=== PATIENT | female | born 1970 | race Caucasian/White ===

== ENCOUNTER 2017-08-11 17:37 | Emergency (ER) | payer BC ==
--- NOTE | 2017-08-11 18:14 | RAD ---
INDICATION: Right ankle injury. TECHNIQUE: 3 views of the right ankle were obtained. FINDINGS: There is soft tissue swelling present along the anterolateral aspect of the ankle. There is an oblique intra-articular fracture of the distal fibula. There is slight displacement of the distal fragment approximately 1 cortical diameter lateral relative to the proximal fragment. There is suggestion of mild widening of the lateral mortise. No other fractures are seen. IMPRESSION: OBLIQUE SLIGHTLY DISPLACED INTRA-ARTICULAR FRACTURE OF THE DISTAL FIBULA. THERE APPEARS TO BE MILD WIDENING OF THE ANKLE MORTISE.
[2017-08-11 18:22] VITALS: BP 141/92
--- NOTE | 2017-08-11 20:47 | UC ---
Leander Forrest Stephanie, scribed for Anderson Leyva MD on 08/11/17 at 1936 . Lower Extremity/Ankle HPI - HPI Summary HPI Summary: The pt is a 47 y/o M presenting to with c/o R ankle pain that occured today at 16:00 s/p fall on ice. The pt reports she heard a snap. The pt states she has not been able to walk s/p fall. - History of Current Complaint Chief Complaint: UCLowerExtremity Stated Complaint: ANKLE INJURY Time Seen by Provider: 08/11/17 18:42 Hx Obtained From: Patient Hx Last Menstrual Period: 2 weeks Onset/Duration: Lasting Hours, Still Present Severity Currently: Moderate Pain Intensity: 6 Pain Scale Used: 0-10 Numeric Aggravating Factor(s): Ambulation Alleviating Factor(s): Rest Able to Bear Weight: No - Allergies/Home Medications Allergies/Adverse Reactions: Allergies Allergy/AdvReac Type Severity Reaction Status Date / Time No Known Allergies Allergy Verified 08/11/17 18:22 PMH/Surg Hx/FS Hx/Imm Hx Previously Healthy: Yes - The pt denies past medical hx. - Surgical History Surgical History: None - Family History Known Family History: Positive: Unknown - Reviewed and non-contributory - Social History Occupation: Employed Part-time Lives: With Family Alcohol Use: None Substance Use Type: None Smoking Status (MU): Never Smoked Tobacco Review of Systems Constitutional: Negative Skin: Negative Eyes: Negative ENT: Negative Respiratory: Negative Cardiovascular: Negative Gastrointestinal: Negative Genitourinary: Negative Motor: Negative Neurovascular: Negative Musculoskeletal: Other: - pain in R LE Neurological: Negative Psychological: Negative All Other Systems Reviewed And Are Negative: Yes Physical Exam Triage Information Reviewed: Yes Vital Signs: Initial Vital Signs Temp 98.8 F 08/11/17 18:19 Pulse 92 08/11/17 18:19 Resp 16 08/11/17 18:19 BP 141/92 08/11/17 18:19 Pulse Ox 98 08/11/17 18:19 Vital Signs Reviewed: Yes - Additional Comments General: well-appearing, no pain distress Skin: warm, color reflects adequate perfusion, dry Head: normal Eyes: EOMI, CHARISSE ENT: normal Neck: supple, nontender Respiratory: CTA, breath sounds present Cardiovascular: RRR Abdomen: soft, nontender Bowel: present Musculoskeletal: R ankle edematous and tender to palpation, R lateral ankle tender to palpation. Nml cap refill Neurological: normal, sensory/motor intact, A&O x3 Psychological: affect/mood appropriate Procedures - Splinting Location: RIGHT ANKLE Hand-Made Type: orthoglass Splint: SUGAR TONG AND POSTERIOR SPLINS PLACED BY OK PHILLIPS Pre-Proc Neuro Vasc Exam: normal Post-Proc Neuro Vasc Exam: normal Diagnostics - Radiology Ankle XRAY Xray Interpretation: No Acute Changes Radiology Interpretation Completed By: Radiologist - OBLIQUE SLIGHTLY DISPLACED INTRA-ARTICULAR FRACTURE OF THE DISTAL FIBULA. THERE APPEARS TO BE MILD WIDENING OF THE ANKLE MORTISE. Lower Extremity Course/Dx - Course Course Of Treatment: Medications reviewed. BP noted and advised to follow up with PCP. - Differential Dx/Diagnosis Provider Diagnoses: RIGHT ANKLE FRACTURE. elevated BP without dx of HTN Discharge - Discharge Plan Condition: Stable Disposition: HOME Patient Education Materials: Ankle Fracture (ED) Referrals: [facility] [Outside] - As Soon As Possible Mariah Fierro MD [Primary Care Provider] - Additional Instructions: FOLLOW UP WITH ORTHOPEDICS. GET RECHECKED FOR ANY WORSENING OF YOUR CONDITION OR QUESTIONS OR CONCERNS. YOUR BLOOD PRESSURE WAS ELEVATED DURING TODAY'S VISIT; FOLLOW UP WITH YOUR PCP WITHIN ONE WEEK FOR FURTHER EVALUATION. The documentation as recorded by the Leander varela Stephanie accurately reflects the service I personally performed and the decisions made by me, Anderson Leyva MD.
== END 2017-08-11 19:38 | disposition home or self-care (01) ==
LOC: UCEAST 17:37
DX: S82.831A Other fracture of upper and lower end of right fibula, initial encounter for closed fracture (principal); W00.0XXA Fall on same level due to ice and snow, initial encounter; Y93.29 Activity, other involving ice and snow; Y92.9 Unspecified place or not applicable; R03.0 Elevated blood-pressure reading, without diagnosis of hypertension
CPT/HCPCS: 99201; G0463

== ENCOUNTER 2017-08-30 11:05 | Inpatient (IN) | payer BC ==
[2017-08-30 12:09] LABS: ABS Basophils 0.1 10^3/ul (0-0.2); ABS Eosinophils 0.2 10^3/ul (0-0.6); ABS Lymphocytes 1.8 10^3/ul (1.0-4.8); ABS Monocytes 0.7 10^3/ul (0-0.8); ABS Neutrophils 7.9 10^3/ul (1.5-7.7); ABS Nucleated RBC 0 10^3/ul; Eosinophil % 2.1 % (0-6); Hematocrit 47 % (35-47); Hemoglobin 15.9 g/dl (12.0-16.0); Lymphocyte % 16.5 % (25-47); Mean Corpuscular HGB Conc 34 g/dl (31-36); Mean Corpuscular Hemoglobin 29 pg (27-31); Mean Corpuscular Volume 87 fL (80-97); Mean Platelet Volume 9 um3 (7.4-10.4); Nucleated Red Blood Cells % 0.1; Platelet Count 171 10^3/ul (150-450); Red Blood Count 5.41 10^6/ul (4.0-5.4); Red Cell Distribution Width 14 % (10.5-15); White Blood Count 10.7 10^3/ul (3.5-10.8)
--- NOTE | 2017-08-30 12:25 | ED ---
Shortness of Breath - HPI Summary HPI Summary: The patient is an otherwise healthy 47-year-old female presenting to the ED from her PCP office with a chief complaint of shortness of breath. Recent injury to the right lower extremity with a tibia fracture. Currently the leg is casted. Endorses discomfort with breathing, but not worse with with deep inhalation. Never a history of DVT or PE. Denies any calf pain or recent travel. Patient is a nonsmoker. She is however obese. Symptoms began a few days ago under associated with cough. Denies any fevers, sweats, chills. Denies any abdominal pain, nausea, vomiting. Denies diaphoresis. She has been otherwise healthy and takes no medications daily. - History of Current Complaint Chief Complaint: EDShortnessOfBreath Time Seen by Provider: 08/30/17 11:26 Hx Obtained From: Patient Onset/Duration: Sudden Onset Timing: Constant Current Severity: Moderate Dyspnea At: Rest Associated Signs & Symptoms: Cough (Nonproductive) - Risk Factors Pulmonary Embolism: Recent Surgery Cardiac: Negative Pseudomonas: Negative Tuberculosis: Negative - Allergy/Home Medications Allergies/Adverse Reactions: Allergies Allergy/AdvReac Type Severity Reaction Status Date / Time No Known Allergies Allergy Verified 08/11/17 18:22 Home Medications: Home Medications Levothyroxine TAB* [Synthroid TAB*] 88 mcg PO DAILY 08/30/17 [History Confirmed 08/30/17] PMH/Surg Hx/FS Hx/Imm Hx Previously Healthy: Yes Respiratory History: Reports: Hx Asthma Infectious Disease History: No Infectious Disease History: Denies: Traveled Outside the [place] in Last 30 Days - Family History Known Family History: Positive: Unknown - Reviewed and non-contributory - Social History Occupation: Employed Full-time Lives: With Family Alcohol Use: None Hx Substance Use: No Substance Use Type: Reports: None Hx Tobacco Use: No Smoking Status (MU): Never Smoked Tobacco Review of Systems Constitutional: Negative Negative: Fever, Chills, Fatigue, Skin Diaphoresis Eyes: Negative Cardiovascular: Negative Positive: Shortness Of Breath Genitourinary: Negative Positive: no symptoms reported, see HPI Musculoskeletal: Negative Neurological: Negative All Other Systems Reviewed And Are Negative: Yes Physical Exam Triage Information Reviewed: Yes Vital Signs On Initial Exam: Initial Vitals Temp Pulse Resp BP Pulse Ox 97.4 F 109 20 124/88 93 08/30/17 11:07 08/30/17 11:07 08/30/17 11:07 08/30/17 11:07 08/30/17 11:07 Vital Signs Reviewed: Yes Appearance: Positive: Well-Appearing, Well-Nourished Skin: Positive: Warm, Skin Color Reflects Adequate Perfusion Head/Face: Positive: Normal Head/Face Inspection Eyes: Positive: EOMI, CHARISSE, Conjunctiva Clear Neck: Positive: Supple, No Lymphadenopathy Respiratory/Lung Sounds: Positive: Clear to Auscultation, Breath Sounds Present Cardiovascular: Positive: RRR, Pulses are Symmetrical in both Upper and Lower Extremities Musculoskeletal: Positive: Normal, Strength/ROM Intact Neurological: Positive: Speech Normal Psychiatric: Positive: Normal, Affect/Mood Appropriate AVPU Assessment: Alert Diagnostics - Vital Signs Vital Signs Temp Pulse Resp BP Pulse Ox 08/30/17 12:01 102 92 08/30/17 11:07 97.4 F 109 20 124/88 93 - Laboratory Lab Results: Lab Results 08/30/17 08/30/17 Range/Units 11:54 11:54 WBC 10.7 (3.5-10.8) 10^3/ul RBC 5.41 H (4.0-5.4) 10^6/ul Hgb 15.9 (12.0-16.0) g/dl Hct 47 (35-47) % MCV 87 (80-97) fL MCH 29 (27-31) pg MCHC 34 (31-36) g/dl RDW 14 (10.5-15) % Plt Count 171 (150-450) 10^3/ul MPV 9 (7.4-10.4) um3 Neut % (Auto) 74.0 (38-83) % Lymph % (Auto) 16.5 L (25-47) % Phillips % (Auto) 6.6 (0-7) % Eos % (Auto) 2.1 (0-6) % Baso % (Auto) 0.8 (0-2) % Absolute Neuts (auto) 7.9 H (1.5-7.7) 10^3/ul Absolute Lymphs (auto) 1.8 (1.0-4.8) 10^3/ul Absolute Monos (auto) 0.7 (0-0.8) 10^3/ul Absolute Eos (auto) 0.2 (0-0.6) 10^3/ul Absolute Basos (auto) 0.1 (0-0.2) 10^3/ul Absolute Nucleated RBC 0 10^3/ul Nucleated RBC % 0.1 D-Dimer, Quantitative > 1050 H (Less Than 230) ng/mL Result Diagrams: 08/30/17 11:54 08/30/17 11:54 Lab Statement: Any lab studies that have been ordered have been reviewed, and results considered in the medical decision making process. Course/Dx - Course Course Of Treatment: Patient is an otherwise healthy 47-year-old female who presents to the ED from PCP office with shortness of breath. Tibia fracture 3 weeks ago and is currently in a cast. PERC score with 1 criteria met. CTA obtained. D-dimer > 1050. EKG shows sinus tachycardia. No stemi. Bilateral large PE's. There is nodular groundglass opacification of the right upper lung and right lower lung. This is an indeterminate appearance. This may be an infectious or inflammatory, though pulmonary parenchymal neoplasm is also within the differential. Additionally, given the presence of pulmonary emboli, early pulmonary infarct is also within the differential. In the absence of a history of malignancy, recommend attention on short-term interval follow-up examination, or consideration of correlation with PET/CT if there is a high clinical suspicion for neoplasm. I have discussed the case with Dr. Ventura who suggests ordering a echo. Patient is 98% on 2 L O2. She has been desatting to 85% on room air. Hospitalist agrees to come see patient and admit for bilateral large pulmonary emboli. - Diagnoses Provider Diagnoses: Pulmonary embolism Discharge - Discharge Plan Condition: Fair Disposition: ADMITTED TO [facility] Referrals: Mariah Fierro MD [Primary Care Provider] -
[2017-08-30 12:53] LABS: EGFR Non-African American 60.7 (>60)
[2017-08-30] MEDS ORDERED: Iohexol 350* (CONTRAST) 500 ML MDV IV ONE (13:20)
--- NOTE | 2017-08-30 13:56 | RAD ---
HISTORY: Shortness of breath, tachycardia, recent surgery COMPARISONS: None TECHNIQUE: Multiple contiguous axial CT scans of the chest were obtained after the administration of nonionic intravenous contrast, timed to the pulmonary arterial phase of contrast enhancement.. Coronal and sagittal multiplanar reformations are also submitted for review. FINDINGS: NECK AND THYROID: The lower neck and thyroid are unremarkable. CHEST WALL: There is no lower cervical, axillary, or supraclavicular lymphadenopathy by size criteria. HEART AND PERICARDIUM: The heart is unremarkable. AORTA AND PULMONARY VASCULATURE: There are bilateral filling defect extending from the lobar branches of the pulmonary arteries bilaterally to the segmental and subsegmental branches consistent with large bilateral pulmonary emboli. MEDIASTINUM: There is no mediastinal lymphadenopathy by size criteria. AVELINA: There is no hilar lymphadenopathy by size criteria. AIRWAY AND ESOPHAGUS: The airway is unremarkable, without endobronchial filling defect. The esophagus is grossly normal. LUNG PARENCHYMA: There is nodular groundglass opacification within the right upper lobe and right lower lobe. The largest nodular lesion measures approximately 1.7 cm in size.. PLEURA: No pleural abnormalities are noted. UPPER ABDOMEN: The upper abdomen is unremarkable. BONES AND SOFT TISSUES: Mild degenerative changes are noted OTHER: None. IMPRESSION: 1. LARGE BILATERAL PULMONARY EMBOLI. 2. THERE IS NODULAR GROUNDGLASS OPACIFICATION OF THE RIGHT UPPER LUNG AND RIGHT LOWER LUNG. THIS IS AN INDETERMINATE APPEARANCE. THIS MAY BE AN INFECTIOUS OR INFLAMMATORY, THOUGH PULMONARY PARENCHYMAL NEOPLASM IS ALSO WITHIN THE DIFFERENTIAL. ADDITIONALLY, GIVEN THE PRESENCE OF PULMONARY EMBOLI, EARLY PULMONARY INFARCT IS ALSO WITHIN THE DIFFERENTIAL. IN THE ABSENCE OF A HISTORY OF MALIGNANCY, RECOMMEND ATTENTION ON SHORT-TERM INTERVAL FOLLOW-UP EXAMINATION, OR CONSIDERATION OF CORRELATION WITH PET/CT IF THERE IS A HIGH CLINICAL SUSPICION FOR NEOPLASM. PRELIMINARY FINDINGS OF THE PULMONARY EMBOLI WERE DISCUSSED WITH TOM SOLORIO IN THE EMERGENCY DEPARTMENT AT APPROXIMATELY 1:50 PM ON AUGUST 30, 2017.
[2017-08-30] MEDS ORDERED: Heparin DRIP 25,000 UNITS(*) 25,000 UNITS/500 ML BAG IVPB SCH (14:15)
[2017-08-30] MEDS ORDERED: Acetaminophen TAB* 325 MG PO PRN (14:38)
[2017-08-30] MEDS ORDERED: Ondansetron INJ* 2 MG/ML VIAL IV PRN (14:38)
[2017-08-30] MEDS ORDERED: NS 0.9% 1000 ML* 1,000 ML IV ONE (14:48)
[2017-08-30] MEDS ORDERED: Heparin VIAL(*) 5000 UNITS/ML VIAL (FIVE THOUSAND) IV SCH ×2 (15:00)
--- NOTE | 2017-08-30 16:19 | ECHO ---
Patient: YOGI BABCOCK V [facility] Rec#: [id number] : 1970 Date: 08/30/2017 Age: 47y Height: 175.3 cm / 69.0 in Weight: 131.5 kg / 289.8 lbs Sex: F BSA: 2.4 Room#: 12 Admit Date#: 08/30/2017 Type: Inpatient Referring: Olga Cruz Reading: John De Leon MD Loader Engineer: Octavia Lutz RN RDCS CC: Mariah Fierro MD Transthoracic Echocardiogram Indication: Pulmonary emboli BP: 108/68 HR: 90 Rhythm: NSR Findings History: Morbid obesity, recent fracture of right tibia Technical Comments: The study is technically limited due to patient body habitus. The study was technically limited due to the patient's inability to lay in the left lateral decubitus position. Left Ventricle: The left ventricular chamber size is decreased. Mild to moderate concentric left ventricular hypertrophy is observed. Global left ventricular wall motion and contractility are within normal limits. There is normal left ventricular systolic function. The estimated ejection fraction is 55-60%. There is septal flattening of the interventricular septum consistent with right ventricular volume or pressure overload. There is an E to A reversal in the mitral valve flow pattern suggestive of diastolic dysfunction. Left Atrium: The left atrial chamber size is normal. Right Ventricle: The right ventricle is moderately dilated. The right ventricular global systolic function is moderately reduced. Right Atrium: The right atrium is mildly dilated. Aortic Valve: The aortic valve is trileaflet. The aortic valve leaflets are mildly thickened. There is no evidence of aortic regurgitation. There is no evidence of aortic stenosis. Mitral Valve: The mitral valve leaflets are mildly thickened. There is no evidence of mitral regurgitation. There is no evidence of mitral stenosis. Tricuspid Valve: The tricuspid valve leaflets are normal. There is mild to moderate tricuspid regurgitation. There is evidence of moderate pulmonary hypertension. There is no tricuspid stenosis. Pulmonic Valve: The pulmonic valve structure is not well visualized. There is mild pulmonic regurgitation. There is no pulmonic stenosis. Pericardium: A trivial pericardial effusion is visualized. A pericardial fat pad is visualized. Aorta: There is no dilatation of the ascending aorta. There is no dilatation of the aortic arch. There is no dilation of the aortic root. Pulmonary Artery: The main pulmonary artery is not well visualized. Venous: The inferior vena cava appears normal in size. There is less than 50% respiratory change in the inferior vena cava dimension. Summary: There was not any prior study for comparison. Conclusions The left ventricular chamber size is decreased. Mild to moderate concentric left ventricular hypertrophy is observed. The estimated ejection fraction is 55-60%. There is septal flattening of the interventricular septum consistent with right ventricular volume or pressure overload. There is an E to A reversal in the mitral valve flow pattern suggestive of diastolic dysfunction. The right ventricle is moderately dilated. The right atrium is mildly dilated. There is mild to moderate tricuspid regurgitation. There is evidence of moderate pulmonary hypertension. There is mild pulmonic regurgitation. D/w Dr Sequeira via phone. Measurements Name Value Normal Range RVIDd (AP) 2D 3.4 cm (0.9 - 2.6) RVDdMajor (2D) 4.7 cm (2.2 - 4.4) RAd ISD 4CH 5.7 cm (3.4 - 4.9) RA (A4C)W 4 cm (2.9 - 4.6) IVSd (2D) 1.4 cm (0.6 - 1) LVPWd (2D) 1.2 cm (0.6 - 1) LVIDd (2D) 3.2 cm (3.6 - 5.4) LVIDs (2D) 2.3 cm - LV FS (2D) 28 % (25 - 45) Aortic Annulus 2.2 cm (1.4 - 2.6) Ao root diameter (2D) 3 cm (2.1 - 3.5) Ascending Ao 3.4 cm (2.1 - 3.4) Aortic arch 2.3 cm (1.8 - 3.4) LA dimension (AP) 2D 2.9 cm (2.3 - 3.8) LAd ISD 4CH 5.3 cm (2.9 - 5.3) LA ISD 4CH W 3.8 cm (2.5 - 4.5) Name Value Normal Range MV E-wave Vmax 0.55 m/sec - MV deceleration time 194 msec - MV A-wave Vmax 0.75 m/sec - MV E:A ratio 0.7 ratio - LV septal e' Vmax 0.08 m/sec - LV lateral e' Vmax 0.12 m/sec - LV E:e' septal ratio 6.9 ratio - LV E:e' lateral ratio 4.6 ratio - Name Value Normal Range AV Vmax 1.3 m/sec - AV VTI 23.2 cm - AV peak gradient 6.8 mmHg - AV mean gradient 4 mmHg - LVOT Vmax 0.85 m/sec - LVOT VTI 13.8 cm - LVOT peak gradient 2.9 mmHg - LVOT mean gradient 1.8 mmHg - SHARAN Vmax 0.95 m/sec - Name Value Normal Range TR Vmax 3.2 m/sec - TR peak gradient 41 mmHg - RAP 8 mmHg - RVSP 49 mmHg - IVC diameter 1.7 cm - Name Value Normal Range PV Vmax 0.73 m/sec -
[2017-08-30] MEDS ORDERED: Alteplase* 50 MG in PREMIX* 100 ML IVPB ONE (16:31)
--- NOTE | 2017-08-30 17:26 | PN ---
Date of Service: 08/30/17 - [facility] progress note Critical Care Services: Pt admitted this afternoon for SOB and b/l large PE. Pt with tachycardia, BP lowest around 90 systolic. ECHO was reviewed with Dr Lawler- Rt heart strain noted. Pt receiving IV fluids and heparin drip Vital Signs: Temp Pulse Resp BP SpO2 FiO2 98.1 F 90 25 114/74 99 08/30/17 16:20 08/30/17 16:20 08/30/17 16:20 08/30/17 16:20 08/30/17 16:20 Physical Exam: Gen:Pt in NAD HEENT:PERRLA, No JVD Lungs: Clear to auscultation b/l Cardiac: S1, S2+, tachycardic Abdomen:Obese, BS+ Extremities:Rt LE in cast Neuro:Alert, awake, no focal defecits Fluid Balance (Past 24 Hours): Intake & Output 08/28/17 08/29/17 08/30/17 08/31/17 06:59 06:59 06:59 06:59 Weight 293 lb 6.964 oz Labs: Laboratory Results - last 24 hr 08/30/17 15:50 Troponin I 0.03 Impression: Acute large PE b/l with rt heart strain Hypotension sec to circulatory shock Elevated troponin sec to Rt heart strain Plan: Acute PE b/l: Not saddle PE however with signficant clot burden into main pulm arteries, segmental and subsegmental branches also with GGO likely infarcts On Heparin drip, started at 2:30, Arrangements made for tPA given hypotension, Rt heart strain after weighing risks and benefits and informed consent was obtained Discussed in detail with pt and her Risk of bleeding was discussed in detail Informed consent was obtained from patient tPA protocol was ordered and discussed with RN Pt had midline access placed, she also has 2 peripheral 18 gauge IVs Her BP improved while having vascular access placed Plan on holding tPA unless BP drops to less than 100 systolic Discussed with Yaneli who will be collections associate tonight and also over the weekend, discussed with Adrien Vega to be signed off to carmen Pt will be closely monitored in ICU for any acute changes Family also being informed that tPA is being held given improvement in BP
[2017-08-30] MEDS: NS 0.9% 1000 ML* 1,000 ML IV SCH ×4 (17:31→23:56)
--- NOTE | 2017-08-30 18:44 | RAD ---
Indication: Pulmonary embolus, right leg swelling. Duplex Doppler sonography of the right lower extremity deep venous system was performed. Bilaterally the common femoral veins appear patent and compressible. Right proximal greater saphenous vein, proximal deep femoral vein and right proximal femoral vein appears patent and compressible. The right mid femoral vein, distal femoral vein, popliteal vein, posterior tibial vein and peroneal veins are noncompressible with echogenic material within it. This is consistent with occlusive deep venous thrombosis. IMPRESSION: Occlusive deep venous thrombosis in the mid to distal femoral vein, popliteal vein, posterior tibial vein and peroneal veins.
--- NOTE | 2017-08-30 18:45 | HP ---
CC: Dr. Fierro; Dr. Sequeira * HISTORY AND PHYSICAL: DATE OF ADMISSION: 08/30/17 PRIMARY CARE PROVIDER: Dr. Fierro. CONSULTING REPORTER AND CRITICAL CARE PHYSICIAN: Dr. Sequeira. ATTENDING PHYSICIAN WHILE IN THE HOSPITAL: Sai Ventura MD * (report dictated by Adrien Vega NP). CHIEF COMPLAINT: 1. Shortness of breath. 2. Cough. HISTORY OF PRESENT ILLNESS: Ms. Faith is a 47-year-old female patient. She carries a history of hypothyroidism. She unfortunately 3 weeks ago had slipped on the snow and fractured her right lower extremity. She came into the ER for that. She ultimately had been following with Orthopedics; it was splinted and she has been doing well. She actually had followup last Saturday and she was continuing her current plan of care. Unfortunately, the patient over the last couple of days has noted that she has had progressive worsening shortness of breath, dyspnea on exertion, pain with taking a deep breath particularly in the chest. She has been feeling just more winded. She was concerned, she called her primary. Her primary deferred her to the ER as there was concern for possible pulmonary embolism, which ultimately turns out that she did have. She denies feeling short of breath at rest. She denies having any chest pain. She denies any abdominal pain, fevers, chills, or any nausea or vomiting, but because of the bilateral PEs, we were asked to evaluate for admission. PAST MEDICAL HISTORY: Significant for hypothyroidism. PAST SURGICAL HISTORY: 1. She has had a lacrimal duct repair only. 2. She has had a right lower extremity ankle fracture with no surgery at this point. HOME MEDICATIONS: Include Synthroid 88 mcg p.o. daily. ALLERGIES TO MEDICATIONS: Include no known drug allergies. FAMILY HISTORY: Both of her parents had a history of hypertension. SOCIAL HISTORY: She does not smoke. She does not drink. Surrogate decision maker is her . REVIEW OF SYSTEMS: There is no documented fever. She denied having any significant weight change. There was no double vision. She denies having any ear discharge. There was no rhinorrhea. There is no sore throat, no thyroid enlargement. She does admit to chest pain with taking a deep breath. She does admit to having dyspnea on exertion. There is no orthopnea. No nocturnal dyspnea. There is no abdominal pain. There is no nausea, no vomiting. No dysuria , no frequency. No loss of consciousness. No pruritus, no skin ulceration. Review of 14 systems completed, all others negative. PHYSICAL EXAMINATION GENERAL: At this time, Ms. Faith is a 47-year-old female patient. She is sitting in the ED stretcher. She does not appear to be in any acute distress. VITAL SIGNS: Blood pressure 110/84, pulse 96, respirations are 20, O2 saturation is 97%, temperature 97.4. HEENT: Head atraumatic. Eyes, EOMs intact. Sclerae anicteric, not pale. Throat, oral mucosa appears to be dry. No oropharyngeal erythema. NECK: Supple. LUNGS: Clear to auscultation bilaterally. No wheezes, rales, or rhonchi. HEART: Sounds S1, S2. Regular rate and rhythm. No murmurs, rubs, or gallops. ABDOMEN: Soft, flat, nontender. Bowel sounds were present. EXTREMITIES: Pulses were 2+ throughout. Distal CSM checks were intact to the right lower extremity. NEUROLOGIC: She is awake, alert, oriented x3. Fire Behavior Analyst are equal. No gross focal deficits. SKIN: Intact. DIAGNOSTIC STUDIES/LAB DATA: WBC 7.7, RBC of 5.41, hemoglobin 15.9, hematocrit 47, platelet count of 171,000. The D-dimer was greater than 1050. Sodium was 134, potassium of 4.1, chloride of 101, bicarb 24, BUN 17, creatinine 0.99, glucose 118, lactate 1.3, calcium 9.4, total bili 2.0, AST 15, ALT 10, alk phos 69. Troponin was 0.09. CRP of 33, BNP of 430. Beta-hCG was negative. Albumin was 4.1. She had a chest CTA done today. Impression: 1. Large bilateral pulmonary emboli. 2. There is nodule ground-glass opacification of the right upper lung and right lower lung. This is indeterminate in appearance. This may be infectious or inflammatory, though pulmonary parenchymal neoplasm also was in the differential. Additionally, given the presence of pulmonary emboli, early pulmonary infarction also was in the differential. In the absence of malignancy , I recommend a short- term interval followup examination or consideration of correlation with PET/CT as there is high clinical suspicion for neoplasm. She had an EKG obtained today, which shows a sinus tachycardia at a rate of 100. No ST elevations or T-wave inversions. Old medical records were reviewed. IMPRESSION: Ms. Faith is a 47-year-old female patient coming into the ED today with complaints of cough, shortness of breath progressively getting worse over the last couple of days. On evaluation, found to have bilateral large pulmonary embolisms. She will be admitted under inpatient status for: 1. Bilateral large pulmonary embolism with concern for right heart failure. At this point, I did touch base with the critical care physician, Dr. Sequeira, and also our repairer kiln car. The plan will be at this point to go ahead and get an echo, hydrate the patient. We will give her a liter of fluids wide open now , normal saline at 150 an hour. Start her on heparin drip. Depending on the ultrasound with the findings of the echo, we may consider giving tPA, but again at this point, Dr. Sequeira recommended admission to ICU, heparin, and plus or minus tPA depending on echo findings or if she becomes hypotensive at any point or any signs of clinical instability, we will go ahead and give, but at this point again Dr. Sequeira is following along with me. I will also get an ultrasound of the lower extremity. 2. Abnormal CT findings. Again, it is probably secondary to pulmonary infarcts that are early. Given her setting, I have a low suspicion that the ground glass appearance is from neoplastic process, but I would recommend a repeat CT imaging of the patient in a short period of time per the recommendations of Radiology. This can be followed with her primary. 3. Hypothyroidism. Continue Synthroid. 4. DVT prophylaxis. Heparin has been ordered. 5. Fluids, electrolytes, and nutrition. She can have a regular diet. 6. Code status: Full code. TIME SPENT: Time spent on the admission is 60 minutes, greater than half of the time was spent [id number] with the patient, obtaining my history and physical, other half time spent going over the plan of care with the patient, and implementing plan of care. I did discuss the plan of care with my attending Dr. Ventura, he is in agreement. ADRIEN VEGA, YOANA [id number]/CPS #: [id number] MEY
--- NOTE | 2017-08-30 19:35 | CONS ---
CRITICAL CARE CONSULTATION REPORT: DATE OF CONSULT: 08/30/17 CONSULTATION REQUESTED BY: Adrien Vega NP REASON FOR CONSULT: Bilateral large pulmonary embolism. HISTORY OF PRESENT ILLNESS: The patient is a 47-year-old obese female with no past medical history other than recent right ankle fracture, had cast placed on the right lower extremity. The patient was sent in from primary care physician' s office for evaluation of worsening shortness of breath. The patient reported worsening shortness of breath over the past 2 days, also associated with cough. Shortness of breath is worsened with exertion. The patient was sent in to rule out pulmonary embolism. The patient with no history of hypertension. Blood pressure was found to be around 110 to 120 upon arrival. The patient is mildly tachycardic. The patient had CTA of the chest. I have personally reviewed CTA of the chest - the patient noted to have large bilateral pulmonary emboli. No evidence of saddle embolism was seen. Filling defects extend from the lower branches of pulmonary arteries bilaterally in to the segmental and subsegmental branches. The patient also noted to have ground-glass opacities in the right upper and lower lung. No mediastinal or hilar adenopathy was noted. No pleural effusion was noted. The patient had EKG in the emergency room that showed sinus tachycardia without any other abnormalities. However, troponins were mildly elevated at 0.09 and BNP also elevated at 430. Lactate was within normal limits. No other electrolyte abnormalities were noted. The patient was admitted to ICU for large bilateral pulmonary embolism. She was started on heparin drip. She was also started on IV fluids and boluses were also ordered. She is having echocardiogram done as we speak. The patient is alert and awake. She denied any other complaints other than right ankle pain and shortness of breath with movement. The patient reports that her breathing does not bother her when she is lying down. She denies headaches, fevers, chills, urinary complaints. No recent travel. She recently slipped on ice and had fibular fracture. She was seen by Ortho as outpatient and had cast placed. She has not been ambulatory since that time. Lower extremity Dopplers are pending at this time. PAST MEDICAL HISTORY: 1. Recent fracture of right fibula, currently in cast. 2. Hypothyroidism. MEDICATIONS: At home, levothyroxine 88 mcg 1 tablet daily. ALLERGIES: No known drug allergies. FAMILY HISTORY: No history of pulmonary embolism. SOCIAL HISTORY: No history of smoking, alcohol, or drug abuse. Lives at home with family. REVIEW OF SYSTEMS: All 14 systems reviewed and as per HPI. PHYSICAL EXAM: The patient in bed, in no apparent distress, alert, awake, oriented x3. Vital Signs: Temperature 97.4, heart rate 96 beats per minute, respiratory rate 20 per minute, O2 sat 97% on 2 L, blood pressure 110/84. HEENT : Pupils are equal and reactive to light, mucous membranes dry, no JVD. Respiratory: Good air entry bilaterally, clear to auscultation. Cardiovascular : S1, S2 present, tachycardic. No murmurs. Abdomen: Obese, bowel sounds present, nontender, nondistended. Extremities: Right lower extremity in cast, no rash or bruises. Neuro: Alert, awake, and oriented x3. No focal deficits. DIAGNOSTIC STUDIES: CT scan of the chest as described above in HPI. IMPRESSION AND RECOMMENDATIONS: 47-year-old female with recent fall and fracture of right lower extremity 3 weeks ago, status post cast to the right ankle, admitted with worsening shortness of breath, found to have large bilateral pulmonary embolism, and ground-glass opacities on CT chest. 1. Large pulmonary embolism. No saddle embolus was seen, bilateral emboli at the level of segmental and subsegmental bronchi. RV appears to be dilated with evidence of right heart strain on CTA chest. The patient is tachycardic. Blood pressure is around 100 systolic. Slightly tachycardic at 90s. The patient started on heparin drip. The patient will be admitted to ICU for close monitoring. We will continue with IV fluids to maintain adequate preload. 2. Low threshold for tPA. The patient is having echocardiogram at this time. The patient's blood pressure is on the lower end, however, is hemodynamically stable. Will hold off on tPA at this time. Will have vascular access in case the patient needs tPA. The patient to have lower extremity Dopplers done. The patient, her mother, at bedside were updated regarding the findings and treatment implications. Discussed with Adrien Vega NP. Also, discussed with bedside RN in ICU. [id number]/CPS #: [id number] MEY
[2017-08-31 04:07] LABS: INR 1.03 (0.77-1.02)
[2017-08-31] MEDS: Levothyroxine TAB* 88 MCG TAB PO SCH (05:44)
[2017-08-31] MEDS: Heparin DRIP 25,000 UNITS(*) 25,000 UNITS/500 ML BAG IVPB SCH ×2 (05:44→23:59)
[2017-08-31 05:51] LABS: ABS Basophils 0.1 10^3/ul (0-0.2); ABS Eosinophils 0.3 10^3/ul (0-0.6); ABS Lymphocytes 1.6 10^3/ul (1.0-4.8); ABS Monocytes 0.5 10^3/ul (0-0.8); ABS Neutrophils 5.4 10^3/ul (1.5-7.7); ABS Nucleated RBC 0 10^3/ul; Hematocrit 36 % (35-47); Hemoglobin 12.4 g/dl (12.0-16.0); Lymphocyte % 20.8 % (25-47); Mean Corpuscular HGB Conc 34 g/dl (31-36); Mean Corpuscular Hemoglobin 30 pg (27-31); Mean Corpuscular Volume 87 fL (80-97); Mean Platelet Volume 9 um3 (7.4-10.4); Nucleated Red Blood Cells % 0; Platelet Count 123 10^3/ul (150-450); Red Blood Count 4.19 10^6/ul (4.0-5.4); Red Cell Distribution Width 14 % (10.5-15); White Blood Count 7.9 10^3/ul (3.5-10.8)
[2017-08-31] MEDS: NS 0.9% 1000 ML* 1,000 ML IV SCH (06:02)
[2017-08-31 06:11] LABS: EGFR Non-African American 82.3 (>60)
--- NOTE | 2017-08-31 08:51 | PN ---
Subjective Date of Service: 08/31/17 Interval History: Hemodynamically stable overnight. Still complains of shortness of breath even with moving around in bed. Has not been out of bed yet. No chest pain, no dizziness or lightheadedness while in bed. No headache or bleeding. Family History: Unchanged from Admission Social History: Unchanged from Admission Past Medical History: Unchanged from Admission Objective Active Medications: Acetaminophen (Tylenol Tab*) 650 mg PO Q4H PRN PRN Reason: FEVER/PAIN Heparin Sodium (Porcine) (Heparin Vial(*)) 0 units IV .PER PROTOCOL DONA PRN Reason: Protocol Heparin Sodium (Porcine) (Heparin Flush Picc/Ml/Cvc(*)) 1 - 3 ml FLUSH 0600, 1800 DONA PRN Reason: Protocol Last Admin: 08/31/17 05:45 Dose: Not Given Heparin Sodium/Dextrose (Heparin Drip 25,000 Units(*)) 25,000 units in 500 mls @ 0 mls/hr IVPB PER RATE DONA; Per Protocol PRN Reason: Protocol Last Admin: 08/31/17 05:44 Dose: 29 mls/hr Sodium Chloride (Ns 0.9% 1000 Ml*) 1,000 mls @ 150 mls/hr IV PER RATE [facility] Last Admin: 08/31/17 06:02 Dose: 150 mls/hr Levothyroxine Sodium (Synthroid Tab*) 88 mcg PO DAILY@0600 [facility] Last Admin: 08/31/17 05:44 Dose: 88 mcg Ondansetron HCl (Zofran Inj*) 4 mg IV Q6H PRN PRN Reason: NAUSEA Vital Signs - 8 hr 08/31/17 08/31/17 08/31/17 01:00 01:16 01:30 Temperature Pulse Rate 89 87 93 Respiratory 20 23 20 Rate Blood Pressure 117/76 117/76 105/78 (mmHg) O2 Sat by Pulse 93 93 94 Oximetry 08/31/17 08/31/17 08/31/17 01:46 02:00 02:01 Temperature Pulse Rate 91 88 91 Respiratory 20 17 25 Rate Blood Pressure 113/75 110/77 (mmHg) O2 Sat by Pulse 91 92 94 Oximetry 08/31/17 08/31/17 08/31/17 02:15 02:30 02:45 Temperature Pulse Rate 84 84 84 Respiratory 22 21 21 Rate Blood Pressure 112/79 96/75 112/73 (mmHg) O2 Sat by Pulse 93 93 90 Oximetry 08/31/17 08/31/17 08/31/17 03:00 03:16 03:17 Temperature Pulse Rate 79 82 76 Respiratory 21 22 23 Rate Blood Pressure 122/80 85/68 120/69 (mmHg) O2 Sat by Pulse 92 95 94 Oximetry 08/31/17 08/31/17 08/31/17 03:30 03:45 04:00 Temperature 97.8 F Pulse Rate 84 83 95 Respiratory 22 23 18 Rate Blood Pressure 107/74 113/71 (mmHg) O2 Sat by Pulse 96 96 89 Oximetry 08/31/17 08/31/17 08/31/17 04:01 04:15 04:30 Temperature Pulse Rate 95 85 84 Respiratory 19 19 20 Rate Blood Pressure 112/74 98/73 112/70 (mmHg) O2 Sat by Pulse 87 95 95 Oximetry 08/31/17 08/31/17 08/31/17 04:45 05:00 05:15 Temperature Pulse Rate 82 79 80 Respiratory 15 23 19 Rate Blood Pressure 111/74 106/74 114/67 (mmHg) O2 Sat by Pulse 94 96 96 Oximetry 08/31/17 08/31/17 08/31/17 05:21 05:30 05:45 Temperature Pulse Rate 87 81 Respiratory 20 17 20 Rate Blood Pressure 111/72 112/77 (mmHg) O2 Sat by Pulse 96 95 Oximetry 08/31/17 08/31/17 08/31/17 06:00 06:01 06:07 Temperature Pulse Rate 84 84 Respiratory 23 20 19 Rate Blood Pressure 115/69 (mmHg) O2 Sat by Pulse 93 94 Oximetry 08/31/17 08/31/17 08/31/17 06:15 06:30 06:45 Temperature Pulse Rate 77 76 75 Respiratory 21 19 17 Rate Blood Pressure 107/74 112/78 114/81 (mmHg) O2 Sat by Pulse 97 97 96 Oximetry 08/31/17 08/31/17 08/31/17 07:00 07:15 07:30 Temperature 97.7 F Pulse Rate 74 77 75 Respiratory 20 18 18 Rate Blood Pressure 114/79 120/74 114/74 (mmHg) O2 Sat by Pulse 94 94 96 Oximetry 08/31/17 08/31/17 07:45 08:00 Temperature Pulse Rate 75 74 Respiratory 18 18 Rate Blood Pressure 115/76 108/79 (mmHg) O2 Sat by Pulse 98 97 Oximetry Oxygen Devices in Use Now: Nasal Cannula Appearance: alert, no distress, able to speak in full sentences Eyes: No Scleral Icterus Ears/Nose/Mouth/Throat: NL Teeth, Lips, Gums Neck: - - JVP ~14cm Respiratory: Symmetrical Chest Expansion and Respiratory Effort, Clear to Auscultation Cardiovascular: RRR Abdominal: NL Sounds; No Tenderness; No Distention, No Hepatosplenomegaly Lymphatic: No Cervical Adenopathy Extremities: - - RLE casted Neurological: Alert and Oriented x 3 Result Diagrams: 08/31/17 05:45 08/31/17 05:45 Additional Lab and Data: Lab Results 08/30/17 08/30/17 Range/Units 11:54 11:54 WBC 10.7 (3.5-10.8) 10^3/ul RBC 5.41 H (4.0-5.4) 10^6/ul Hgb 15.9 (12.0-16.0) g/dl Hct 47 (35-47) % MCV 87 (80-97) fL MCH 29 (27-31) pg MCHC 34 (31-36) g/dl RDW 14 (10.5-15) % Plt Count 171 (150-450) 10^3/ul MPV 9 (7.4-10.4) um3 Neut % (Auto) 74.0 (38-83) % Lymph % (Auto) 16.5 L (25-47) % [place] % (Auto) 6.6 (0-7) % Eos % (Auto) 2.1 (0-6) % Baso % (Auto) 0.8 (0-2) % Absolute Neuts (auto) 7.9 H (1.5-7.7) 10^3/ul Absolute Lymphs (auto) 1.8 (1.0-4.8) 10^3/ul Absolute Monos (auto) 0.7 (0-0.8) 10^3/ul Absolute Eos (auto) 0.2 (0-0.6) 10^3/ul Absolute Basos (auto) 0.1 (0-0.2) 10^3/ul Absolute Nucleated RBC 0 10^3/ul Nucleated RBC % 0.1 D-Dimer, Quantitative > 1050 H (Less Than 230) ng/mL Microbiology and Other Data: Microbiology 08/30/17 20:00 Nasal Screen MRSA (PCR)(AUBREY) - Final Nasal Mrsa Not Detected Assess/Plan/Problems-Billing Assessment: 47 yo female with right fibula fracture 3 weeks ago admitted 08/30 with shortness of breath, found to have large b/l PEs with evidence of right heart strain on TTE. - Patient Problems (1) Pulmonary emboli Current Visit: Yes Status: Acute Code(s): I26.99 - OTHER PULMONARY EMBOLISM WITHOUT ACUTE COR PULMONALE SNOMED Code(s): 95952987 Comment: Provoked from RLE fibula fracture On heparin drip now; ICU/pulm considered tpa yesterday, however it was decided against due to hemodynamic stability Appreciate pulm input on utility of tpa given high burden of disease and cor pulmonale Still requiring 3L O2 and dyspneic with slight movement Continue heparin for now until more stable (2) Cor pulmonale, acute Current Visit: Yes Status: Acute Code(s): I26.09 - OTHER PULMONARY EMBOLISM WITH ACUTE COR PULMONALE SNOMED Code(s): 62080302 Comment: due to PE will stop IVF now and re-evaluate hemodynamics throughout the day (3) Pulmonary nodule Current Visit: Yes Status: Acute Code(s): R91.1 - SOLITARY PULMONARY NODULE SNOMED Code(s): 133301318 Comment: ground glass appearance, likely early infarct (4) DVT (deep venous thrombosis) Current Visit: Yes Status: Acute Code(s): I82.409 - ACUTE EMBOLISM AND THOMBOS UNSP DEEP VN UNSP LOWER EXTREMITY SNOMED Code(s): 144372863 Comment: occlusive in femoral, popliteal heparin drip as above Status and Disposition: ICU level of care
--- NOTE | 2017-08-31 10:14 | PN ---
Progress Note - Progress Note Date of Service: 08/31/17 SOAP: Subjective: 47 y/o F admitted to ICU for treatment of massive pulmonary emboli. [address] Dr[address] Chatman in clinic for a minimally displaced right ankle fracture. She was placed in a cast. States that she is doing well today. She has minimal pain in her ankle and states the cast is not rubbing anywhere. She has been compliant with nonweightbearing. She denies N/T. Cont SOB, no CP. Objective: 47 y/o F NAD, A&Ox3 RLE- cast c/d/i, able to F/E knee and toes, SILT distally Vital Signs Temp Pulse Resp BP Pulse Ox 97.7 F 74 18 108/79 97 08/31/17 07:30 08/31/17 08:00 08/31/17 08:00 08/31/17 08:00 08/31/17 08:00 Laboratory Results - last 24 hr 08/30/17 08/30/17 08/30/17 11:54 11:54 11:54 WBC 10.7 RBC 5.41 H Hgb 15.9 Hct 47 MCV 87 MCH 29 MCHC 34 RDW 14 Plt Count 171 MPV 9 Neut % (Auto) 74.0 Lymph % (Auto) 16.5 L [place] % (Auto) 6.6 Eos % (Auto) 2.1 Baso % (Auto) 0.8 Absolute Neuts (auto) 7.9 H Absolute Lymphs (auto) 1.8 Absolute Monos (auto) 0.7 Absolute Eos (auto) 0.2 Absolute Basos (auto) 0.1 Absolute Nucleated RBC 0 Nucleated RBC % 0.1 INR (Anticoag Therapy) APTT D-Dimer, Quantitative > 1050 H Sodium 134 Potassium 4.1 Chloride 101 Carbon Dioxide 24 Anion Gap 9 BUN 17 Creatinine 0.99 H Est GFR ( Amer) 78.0 Est GFR (Non-Af Amer) 60.7 BUN/Creatinine Ratio 17.2 Glucose 118 H Lactic Acid Calcium 9.4 Total Bilirubin 2.00 H AST 15 ALT 10 Alkaline Phosphatase 69 Troponin I 0.09 H* C-Reactive Protein 33.00 H B-Natriuretic Peptide Total Protein 7.5 Albumin 4.1 Globulin 3.4 Albumin/Globulin Ratio 1.2 Beta HCG, Quant < 0.60 0308/30/17 08/30/17 11:54 11:54 11:54 WBC RBC Hgb Hct MCV MCH MCHC RDW Plt Count MPV Neut % (Auto) Lymph % (Auto) [place] % (Auto) Eos % (Auto) Baso % (Auto) Absolute Neuts (auto) Absolute Lymphs (auto) Absolute Monos (auto) Absolute Eos (auto) Absolute Basos (auto) Absolute Nucleated RBC Nucleated RBC % INR (Anticoag Therapy) APTT 29.2 D-Dimer, Quantitative Sodium Potassium Chloride Carbon Dioxide Anion Gap BUN Creatinine Est GFR ( Amer) Est GFR (Non-Af Amer) BUN/Creatinine Ratio Glucose Lactic Acid 1.3 Calcium Total Bilirubin AST ALT Alkaline Phosphatase Troponin I C-Reactive Protein B-Natriuretic Peptide 430 H Total Protein Albumin Globulin Albumin/Globulin Ratio Beta HCG, Quant 08/30/17 08/30/17 08/30/17 15:50 18:45 20:53 WBC RBC Hgb Hct MCV MCH MCHC RDW Plt Count MPV Neut % (Auto) Lymph % (Auto) [place] % (Auto) Eos % (Auto) Baso % (Auto) Absolute Neuts (auto) Absolute Lymphs (auto) Absolute Monos (auto) Absolute Eos (auto) Absolute Basos (auto) Absolute Nucleated RBC Nucleated RBC % INR (Anticoag Therapy) APTT 85.7 H D-Dimer, Quantitative Sodium Potassium Chloride Carbon Dioxide Anion Gap BUN Creatinine Est GFR ( Amer) Est GFR (Non-Af Amer) BUN/Creatinine Ratio Glucose Lactic Acid Calcium Total Bilirubin AST ALT Alkaline Phosphatase Troponin I 0.03 0.02 C-Reactive Protein B-Natriuretic Peptide Total Protein Albumin Globulin Albumin/Globulin Ratio Beta HCG, Quant 08/31/17 08/31/17 08/31/17 03:50 05:45 05:45 WBC 7.9 RBC 4.19 Hgb 12.4 Hct 36 MCV 87 MCH 30 MCHC 34 RDW 14 Plt Count 123 L MPV 9 Neut % (Auto) 68.2 Lymph % (Auto) 20.8 L [place] % (Auto) 6.3 Eos % (Auto) 4.0 Baso % (Auto) 0.7 Absolute Neuts (auto) 5.4 Absolute Lymphs (auto) 1.6 Absolute Monos (auto) 0.5 Absolute Eos (auto) 0.3 Absolute Basos (auto) 0.1 Absolute Nucleated RBC 0 Nucleated RBC % 0 INR (Anticoag Therapy) 1.03 H APTT 59.0 H D-Dimer, Quantitative Sodium 135 Potassium 3.9 Chloride 108 Carbon Dioxide 23 Anion Gap 4 BUN 9 Creatinine 0.76 Est GFR ( Amer) 105.8 Est GFR (Non-Af Amer) 82.3 BUN/Creatinine Ratio 11.8 Glucose 120 H Lactic Acid Calcium 7.7 L Total Bilirubin AST ALT Alkaline Phosphatase Troponin I C-Reactive Protein B-Natriuretic Peptide Total Protein Albumin Globulin Albumin/Globulin Ratio Beta HCG, Quant Assessment: 3 weeks S/P minimally displaced right ankle fx Admitted for pulmonary emboli Plan: -Continue care per critical care team - NWB RLE - keep cast clean dry and intact - Will follow up with Dr. Chatman outpatient as scheduled
--- NOTE | 2017-08-31 11:45 | PN ---
Progress Note - Progress Note Date of Service: 08/31/17 Note: CRITICAL CARE MEDICINE Date: 08/31/17 Time: 1120 SUBJECTIVE: Patient seen and examined. PHYSICAL EXAM: Vital Signs: Reviewed. Neurologic: awake, conversive. nonfocal HEENT: pupils equal. Sclera anicteric. Trachea midline. Cardiovascular: S1 S2 Respiratory: clear bl, mild r rhonchi Abdomen: Soft, nt. No r/g/r. Extremities: Warm. LABS: Reviewed. T down IMAGING: Reviewed. CT reviewed; echo read reviewed MEDICATIONS: Reviewed. ASSESSMENT: 47 F Submassive PE with acute hypoxic resp failure requiring O2 Extensive Right femoral DVT Morbid obesity PLAN: d/w pt Discussions held with pt and teams yesterday regarding her submassive pe treatment and consideration for 1/2 dose tpa given her extensive clot burden and right heart strain. Post fracture can be concerning for bleeding potential but not contraindication. Pt sx for about 3 days and otherwise stable hemodynamics, tolerating standard of care, therefore risk/benefit, plans for continued care and reserve tpa. Discussed these dynamics with pt again today. Explained as she is up and around today we will objectively and subjectively monitor her dx and still consider risk/beneifts of 1/2 dose tpa today. If she tolerates otherwise well with standard of care then can consider transition to novel anticoagulatants tomorrow from heparin gtt, which is continued today. She may ultimately need an IR or vasc eval for her DVT burden down the line too. Care per primary team. Disposition: ICU today Code Status: Full Critical Care Time: 25min Makayla Groves DO
[2017-09-01 05:52] LABS: ABS Basophils 0 10^3/ul (0-0.2); ABS Eosinophils 0.3 10^3/ul (0-0.6); ABS Lymphocytes 1.5 10^3/ul (1.0-4.8); ABS Monocytes 0.4 10^3/ul (0-0.8); ABS Neutrophils 3.9 10^3/ul (1.5-7.7); ABS Nucleated RBC 0 10^3/ul; Eosinophil % 4.4 % (0-6); Hematocrit 36 % (35-47); Hemoglobin 12.2 g/dl (12.0-16.0); Lymphocyte % 24.3 % (25-47); Mean Corpuscular HGB Conc 34 g/dl (31-36); Mean Corpuscular Hemoglobin 29 pg (27-31); Mean Corpuscular Volume 87 fL (80-97); Mean Platelet Volume 9 um3 (7.4-10.4); Nucleated Red Blood Cells % 0.1; Platelet Count 131 10^3/ul (150-450); Red Blood Count 4.15 10^6/ul (4.0-5.4); Red Cell Distribution Width 13 % (10.5-15); White Blood Count 6.1 10^3/ul (3.5-10.8)
[2017-09-01 06:12] LABS: EGFR Non-African American 83.6 (>60)
[2017-09-01] MEDS: Levothyroxine TAB* 88 MCG TAB PO SCH (06:51)
--- NOTE | 2017-09-01 08:42 | PN ---
Subjective Date of Service: 09/01/17 Interval History: No overnight events, still requiring 3L O2, but has not been attempted to be weaned. got out of bed yesterday and says she got "winded" just getting to the chair. Feels good this morning, no complaints, no pain, orthopnea, cough, fevers. Family History: Unchanged from Admission Social History: Unchanged from Admission Past Medical History: Unchanged from Admission Objective Active Medications: Acetaminophen (Tylenol Tab*) 650 mg PO Q4H PRN PRN Reason: FEVER/PAIN Heparin Sodium (Porcine) (Heparin Vial(*)) 0 units IV .PER PROTOCOL DONA PRN Reason: Protocol Heparin Sodium (Porcine) (Heparin Flush Picc/Ml/Cvc(*)) 1 - 3 ml FLUSH 0600, 1800 [facility] PRN Reason: Protocol Last Admin: 09/01/17 06:52 Dose: Not Given Heparin Sodium/Dextrose (Heparin Drip 25,000 Units(*)) 25,000 units in 500 mls @ 0 mls/hr IVPB PER RATE DONA; Per Protocol PRN Reason: Protocol Last Admin: 08/31/17 23:59 Dose: 29 mls/hr Levothyroxine Sodium (Synthroid Tab*) 88 mcg PO DAILY@0600 [facility] Last Admin: 09/01/17 06:51 Dose: 88 mcg Ondansetron HCl (Zofran Inj*) 4 mg IV Q6H PRN PRN Reason: NAUSEA Vital Signs - 8 hr 08/31/17 08/31/17 09/01/17 23:45 23:54 00:00 Temperature 97.8 F Pulse Rate 77 71 Respiratory 22 16 Rate Blood Pressure 107/73 111/75 (mmHg) O2 Sat by Pulse 96 96 Oximetry 09/01/17 09/01/17 09/01/17 00:15 00:30 00:45 Temperature Pulse Rate 75 75 79 Respiratory 19 20 17 Rate Blood Pressure 107/69 112/69 112/73 (mmHg) O2 Sat by Pulse 95 95 95 Oximetry 09/01/17 09/01/17 09/01/17 01:00 01:15 01:30 Temperature Pulse Rate 74 76 75 Respiratory 23 15 18 Rate Blood Pressure 104/70 113/74 111/71 (mmHg) O2 Sat by Pulse 97 95 96 Oximetry 09/01/17 09/01/17 09/01/17 01:45 03:00 03:01 Temperature Pulse Rate 75 84 68 Respiratory 18 22 18 Rate Blood Pressure 108/66 116/79 (mmHg) O2 Sat by Pulse 95 97 96 Oximetry 09/01/17 09/01/17 09/01/17 03:15 03:30 03:45 Temperature Pulse Rate 72 71 74 Respiratory 18 18 18 Rate Blood Pressure 111/70 112/71 109/74 (mmHg) O2 Sat by Pulse 96 95 97 Oximetry 09/01/17 09/01/17 09/01/17 04:00 04:15 04:30 Temperature 97.9 F Pulse Rate 71 69 78 Respiratory 18 19 17 Rate Blood Pressure 115/70 110/69 110/72 (mmHg) O2 Sat by Pulse 96 96 98 Oximetry 09/01/17 09/01/17 09/01/17 04:45 05:00 05:15 Temperature Pulse Rate 67 76 71 Respiratory 17 18 20 Rate Blood Pressure 112/68 119/78 (mmHg) O2 Sat by Pulse 96 99 98 Oximetry 09/01/17 09/01/17 09/01/17 05:30 05:45 06:00 Temperature Pulse Rate 83 69 78 Respiratory 16 14 18 Rate Blood Pressure 109/75 112/69 115/75 (mmHg) O2 Sat by Pulse 97 97 99 Oximetry 09/01/17 09/01/17 09/01/17 06:31 06:45 07:00 Temperature Pulse Rate 89 80 80 Respiratory 18 16 17 Rate Blood Pressure 142/70 104/74 114/76 (mmHg) O2 Sat by Pulse 93 96 95 Oximetry 09/01/17 09/01/17 09/01/17 07:15 07:30 07:37 Temperature 98.2 F Pulse Rate 80 81 Respiratory 22 20 Rate Blood Pressure 101/71 117/70 (mmHg) O2 Sat by Pulse 95 94 Oximetry Oxygen Devices in Use Now: Nasal Cannula Appearance: alert, well appearing Eyes: No Scleral Icterus Ears/Nose/Mouth/Throat: NL Teeth, Lips, Gums Neck: - - JVP 10cm Respiratory: Symmetrical Chest Expansion and Respiratory Effort, Clear to Auscultation Cardiovascular: NL Sounds; No Murmurs; No JVD, RRR Abdominal: NL Sounds; No Tenderness; No Distention Lymphatic: No Cervical Adenopathy Extremities: No Edema, - - RLE casted, cap refill 2sec Skin: No Rash or Ulcers Neurological: Alert and Oriented x 3 Result Diagrams: 09/01/17 05:37 09/01/17 05:37 Additional Lab and Data: Lab Results 08/30/17 08/30/17 Range/Units 11:54 11:54 WBC 10.7 (3.5-10.8) 10^3/ul RBC 5.41 H (4.0-5.4) 10^6/ul Hgb 15.9 (12.0-16.0) g/dl Hct 47 (35-47) % MCV 87 (80-97) fL MCH 29 (27-31) pg MCHC 34 (31-36) g/dl RDW 14 (10.5-15) % Plt Count 171 (150-450) 10^3/ul MPV 9 (7.4-10.4) um3 Neut % (Auto) 74.0 (38-83) % Lymph % (Auto) 16.5 L (25-47) % [place] % (Auto) 6.6 (0-7) % Eos % (Auto) 2.1 (0-6) % Baso % (Auto) 0.8 (0-2) % Absolute Neuts (auto) 7.9 H (1.5-7.7) 10^3/ul Absolute Lymphs (auto) 1.8 (1.0-4.8) 10^3/ul Absolute Monos (auto) 0.7 (0-0.8) 10^3/ul Absolute Eos (auto) 0.2 (0-0.6) 10^3/ul Absolute Basos (auto) 0.1 (0-0.2) 10^3/ul Absolute Nucleated RBC 0 10^3/ul Nucleated RBC % 0.1 D-Dimer, Quantitative > 1050 H (Less Than 230) ng/mL Microbiology and Other Data: Microbiology 08/30/17 20:00 Nasal Screen MRSA (PCR)(AUBREY) - Final Nasal Mrsa Not Detected Assess/Plan/Problems-Billing Assessment: 47 yo female with right fibula fracture 3 weeks ago admitted 08/30 with shortness of breath, found to have large b/l PEs with evidence of right heart strain on TTE. - Patient Problems (1) Pulmonary emboli Current Visit: Yes Status: Acute Code(s): I26.99 - OTHER PULMONARY EMBOLISM WITHOUT ACUTE COR PULMONALE SNOMED Code(s): 24199962 Comment: Provoked from RLE fibula fracture On heparin drip now; no tpa due to hemodynamic stability. Still requiring 3L O2 and dyspneic with slight movement; attempt to wean today May be able to transition off heparin drip today to a DOAC Appreciate pulm/critical care input (2) Cor pulmonale, acute Current Visit: Yes Status: Acute Code(s): I26.09 - OTHER PULMONARY EMBOLISM WITH ACUTE COR PULMONALE SNOMED Code(s): 91086646 Comment: due to PE hemodynamically stable; euvolemic (3) Pulmonary nodule Current Visit: Yes Status: Acute Code(s): R91.1 - SOLITARY PULMONARY NODULE SNOMED Code(s): 901700909 Comment: ground glass appearance, likely early infarct (4) DVT (deep venous thrombosis) Current Visit: Yes Status: Acute Code(s): I82.409 - ACUTE EMBOLISM AND THOMBOS UNSP DEEP VN UNSP LOWER EXTREMITY SNOMED Code(s): 158943219 Comment: occlusive in femoral, popliteal heparin drip as above with plans to transition to oral AC soon Status and Disposition: inpatient
[2017-09-01] MEDS ORDERED: Warfarin TAB(*) 5 MG PO SCH (17:00)
[2017-09-02 04:03] LABS: EGFR Non-African American 66.9 (>60)
[2017-09-02 04:32] LABS: ABS Nucleated RBC 0 10^3/ul; Hematocrit 37 % (35-47); Hemoglobin 12.5 g/dl (12.0-16.0); Mean Corpuscular HGB Conc 34 g/dl (31-36); Mean Corpuscular Hemoglobin 30 pg (27-31); Mean Corpuscular Volume 89 fL (80-97); Nucleated Red Blood Cells % 0.2; Red Blood Count 4.19 10^6/ul (4.0-5.4); Red Cell Distribution Width 13 % (10.5-15); White Blood Count 6.9 10^3/ul (3.5-10.8)
[2017-09-02 05:14] LABS: Monocytes % 3 % (0-7)
[2017-09-02 05:15] LABS: Platelet Count 105 10^3/ul (150-450)
[2017-09-02] MEDS: Levothyroxine TAB* 88 MCG TAB PO SCH (05:43)
[2017-09-02 10:46] LABS: INR 1.01 (0.77-1.02)
--- NOTE | 2017-09-02 13:28 | PN ---
Subjective Date of Service: 09/02/17 Interval History: Pt feels well, 02 sat went down to 85% when ambulating on RA Family History: Unchanged from Admission Social History: Unchanged from Admission Past Medical History: Unchanged from Admission Objective Active Medications: Acetaminophen (Tylenol Tab*) 650 mg PO Q4H PRN PRN Reason: FEVER/PAIN Apixaban (Eliquis*) 10 mg PO BID [facility] Heparin Sodium (Porcine) (Heparin Vial(*)) 0 units IV .PER PROTOCOL DONA PRN Reason: Protocol Last Admin: 09/01/17 21:49 Dose: 3,450 units Heparin Sodium (Porcine) (Heparin Flush Picc/Ml/Cvc(*)) 1 - 3 ml FLUSH 0600, 1800 [facility] PRN Reason: Protocol Last Admin: 09/02/17 05:42 Dose: Not Given Heparin Sodium/Dextrose (Heparin Drip 25,000 Units(*)) 25,000 units in 500 mls @ 0 mls/hr IVPB PER RATE DONA; Per Protocol PRN Reason: Protocol Stop: 09/02/17 17:00 Last Admin: 08/31/17 23:59 Dose: 29 mls/hr Levothyroxine Sodium (Synthroid Tab*) 88 mcg PO DAILY@0600 [facility] Last Admin: 09/02/17 05:43 Dose: 88 mcg Ondansetron HCl (Zofran Inj*) 4 mg IV Q6H PRN PRN Reason: NAUSEA Warfarin Sodium (Coumadin Tab(*)) 5 mg PO DAILY@1700 [facility] PRN Reason: Protocol Last Admin: 09/01/17 19:55 Dose: 5 mg Vital Signs - 8 hr 09/02/17 09/02/17 08:00 08:18 Respiratory 18 Rate O2 Sat by Pulse 95 Oximetry Oxygen Devices in Use Now: Nasal Cannula Appearance: 47 yo F in nAD, aAOx3 Eyes: No Scleral Icterus, PERRLA Ears/Nose/Mouth/Throat: NL Teeth, Lips, Gums, Mucous Membranes Moist Neck: NL Appearance and Movements; NL JVP, Trachea Midline Respiratory: Symmetrical Chest Expansion and Respiratory Effort, Clear to Auscultation Cardiovascular: NL Sounds; No Murmurs; No JVD, RRR Abdominal: NL Sounds; No Tenderness; No Distention Lymphatic: No Cervical Adenopathy Extremities: No Clubbing, Cyanosis, - - R calf edema, in cast Skin: No Rash or Ulcers, No Nodules or Sclerosis Neurological: Alert and Oriented x 3, NL Muscle Strength and Tone Result Diagrams: 09/02/17 03:34 09/02/17 03:34 Additional Lab and Data: Lab Results 08/30/17 08/30/17 Range/Units 11:54 11:54 WBC 10.7 (3.5-10.8) 10^3/ul RBC 5.41 H (4.0-5.4) 10^6/ul Hgb 15.9 (12.0-16.0) g/dl Hct 47 (35-47) % MCV 87 (80-97) fL MCH 29 (27-31) pg MCHC 34 (31-36) g/dl RDW 14 (10.5-15) % Plt Count 171 (150-450) 10^3/ul MPV 9 (7.4-10.4) um3 Neut % (Auto) 74.0 (38-83) % Lymph % (Auto) 16.5 L (25-47) % [place] % (Auto) 6.6 (0-7) % Eos % (Auto) 2.1 (0-6) % Baso % (Auto) 0.8 (0-2) % Absolute Neuts (auto) 7.9 H (1.5-7.7) 10^3/ul Absolute Lymphs (auto) 1.8 (1.0-4.8) 10^3/ul Absolute Monos (auto) 0.7 (0-0.8) 10^3/ul Absolute Eos (auto) 0.2 (0-0.6) 10^3/ul Absolute Basos (auto) 0.1 (0-0.2) 10^3/ul Absolute Nucleated RBC 0 10^3/ul Nucleated RBC % 0.1 D-Dimer, Quantitative > 1050 H (Less Than 230) ng/mL Microbiology and Other Data: Microbiology 08/30/17 20:00 Nasal Screen MRSA (PCR)(AUBREY) - Final Nasal Mrsa Not Detected Assess/Plan/Problems-Billing Assessment: 47 yo female with right fibula fracture 3 weeks ago admitted 08/30 with shortness of breath, found to have large b/l PEs with evidence of right heart strain on TTE. - Patient Problems (1) Pulmonary emboli Comment: Provoked from RLE fibula fracture d/c heparin gtt and start Eliquis today, from recommendeation of Dr. Rolon Still requiring 2L O2 , start incentive spiromerty ambulations Appreciate pulm/critical care input (2) Cor pulmonale, acute Comment: due to PE hemodynamically stable; euvolemic (3) DVT (deep venous thrombosis) Comment: occlusive in femoral, popliteal starting Eliquis as above (4) Pulmonary nodule Comment: ground glass appearance in RUL, for repeat CT in [address] Rolon Asymptomatic for fevers, cough weight loss making infection less likely Status and Disposition: inpatient
--- NOTE | 2017-09-02 14:54 | CONS ---
CC: Dr. Fierro; Dr. Sequeira * CONSULTATION REPORT: DATE OF CONSULT: REFERRING PHYSICIAN: Dr. Moore. REASON FOR CONSULTATION: Pulmonary embolus. HISTORY OF PRESENT ILLNESS: A 47-year-old female who, 3 weeks ago, broke her right ankle when she fell on wet snow. She was seen by Orthopedics and placed in a cast, then mobilized the ankle up to the knee. She initially had done well up until approximately 5 days ago when she developed acute shortness of breath and cough. She noticed difficulty with walking even small distances and she had pain in her chest when she took a deep breath. Cough was productive with mucus at the beginning and then became nonproductive. She called her primary care doctor when the symptoms lasted more than a day and she was told to come to the emergency room. On presentation, she was found to have normal CBC and chemistries with D-dimer of 118. However, D-dimer on 08/30/17 came back at greater than 1050. She had a CT angiogram that showed large bilateral pulmonary emboli as well as a nodularity or infiltrate in the right upper lobe that was fairly diffuse, but it was found adjacent to some of the proximal bronchioles. She does not have any mediastinal lymphadenopathy, normal size heart, normal appearing spleen and liver. She had an ultrasound of the right lower extremity that showed DVT running from the posterior tibial vein up through mid femoral vein. She was placed on heparin, and in the last few days the breathing has improved significantly. She feels better walking to the bathroom. Cough is no longer present. Consultation is regarding method of long -term anticoagulation. She has no fevers, chills or night sweats, no abdominal symptoms, no urinary symptoms. She is menstruating and her menstrual cycles have been regular. She has no weight loss. No change in appetite. PAST MEDICAL HISTORY: Hypothyroid. PAST SURGICAL HISTORY: Minimal. MEDICATIONS: She is currently on IV heparin and started Coumadin 5 mg daily. Medications at home: She is on Synthroid 88 mcg daily. ALLERGIES: None. FAMILY HISTORY: Her paternal grandfather at 81 of a blood clot, no other thrombosis in the family. Her father had hypertension. GYNECOLOGIC HISTORY: One daughter. noncomplicated, no thrombosis. She continues to have regular menstrual cycles. SOCIAL HISTORY: In the hospital with her . She lived in [place] for 17 years; she grew up in [facility]. One daughter. REVIEW OF SYSTEMS: As noted per HPI, otherwise 14-point review is negative. PHYSICAL EXAM: Temperature 98.1, BP 148/81, sat 97%, respirations 20, heart rate 77. Heart rate was 92 on presentation. HEENT: Mucosa moist. No lesions. No cervical or supraclavicular lymphadenopathy. Lungs: She has some crackles on the right side, otherwise clear to auscultation. No wheezing. She has good air movement throughout. Heart: Distant S1, S2. Abdomen: Obese, nontender. Otherwise, nonspecific exam. Extremities: Right leg is in a cast, some swelling around the knee. Left side without edema. Skin: She has some bruising at the IV sites, on the heparin. Otherwise negative. Neurologic: Nonfocal. Alert and oriented x3. Musculoskeletal: Otherwise negative. No inflammation. DIAGNOSTIC STUDIES/LAB DATA: As noted above. She has been therapeutic on the heparin. She has a mildly elevated glucose and she did have an echocardiogram that showed evidence of right ventricular strain. ASSESSMENT AND PLAN: A 47-year-old female presents with bilateral pulmonary embolism and right deep LE venous thrombosis. It is a provoked event after immobilization of the right ankle from fracture. CT scan also shows a right upper lobe pulmonary infiltrate. Several issues today: 1. Anticoagulation. Given that this is a provoked event, 3 months of oral anticoagulant is appropriate. There is less data for direct oral thrombin and Xa inhibitors in obese patients than in general population. However, several studies did perform subset analysis in the patients with BMI over 35 to over 40. In those studies, efficacy was equivalent in the nonobese patient population. Risks and complications were similar with one exception being the [facility] trial with her increased complications on Xarelto. Options for anticoagulation include Coumadin, Eliquis, other direct oral anticoagulants. Because of the [facility] study, I would avoid Xarelto. 2. Pulmonary infiltrate. Differential diagnosis includes inflammatory response to the pulmonary embolus, chronic infection, malignancy. Malignancy could be contributing to thrombophilia if it exists. I am also worried about tuberculosis given her childhood in [facility], though she said she got a BCG injection. Given that she is asymptomatic and has no cough, and is otherwise pending hospital discharge, we can plan workup as an outpatient. I would like to repeat the CT scan in 6 weeks. If a continued infiltrate, would consider ID and referral to Pulmonology for bronchoscopy. 3. RV strain. We will follow up with a repeat echocardiogram in 3 months. If evidence of chronic RV dysfunction, we will likely have her see Cardiology. 4. Obesity. Likely contributing to the current event. We will discuss lifestyle changes and weight loss. [id number]/[facility] #: [id number] MEY
--- NOTE | 2017-09-02 16:20 | PN ---
Progress Note - Progress Note Date of Service: 09/02/17 - Pulm f/u note Note: Pt seen and examined at bedside. Overall feeling better, however getting SOB with minimal movement Active Medications Generic Name Dose Route Start Last Admin Trade Name Ariana PRN Reason Stop Dose Admin Acetaminophen 650 mg 08/30/17 14:38 Tylenol Tab* PO Q4H PRN FEVER/PAIN Apixaban 10 mg 09/02/17 21:00 Eliquis* PO BID DONA Heparin Sodium (Porcine) 0 units 08/30/17 15:00 09/01/17 21:49 Heparin Vial(*) IV 09/02/17 17:00 3,450 units .PER PROTOCOL DONA Administration Protocol Heparin Sodium (Porcine) 1 - 3 ml 08/30/17 18:00 09/02/17 05:42 Heparin Flush Picc/Ml/Cvc(*) FLUSH Not Given 0600,1800 DONA Protocol Heparin Sodium/Dextrose 25,000 units in 500 mls @ 0 mls/hr 08/30/17 14:45 04/10 23:59 Heparin Drip 25,000 Units(*) IVPB 09/02/17 17:00 29 mls/hr PER RATE DONA Administration Protocol Per Protocol Levothyroxine Sodium 88 mcg 08/31/17 06:00 09/02/17 05:43 Synthroid Tab* PO 88 mcg DAILY@0600 DONA Administration Ondansetron HCl 4 mg 08/30/17 14:38 Zofran Inj* IV Q6H PRN NAUSEA Vital Signs Temp Pulse Resp BP Pulse Ox 98.1 F 77 18 148/81 95 09/01/17 20:30 09/01/17 20:30 09/02/17 08:00 09/01/17 20:30 09/02/17 08:18 Laboratory Results - last 24 hr 09/01/17 09/02/17 09/02/17 20:35 03:33 03:34 WBC 6.9 RBC 4.19 Hgb 12.5 Hct 37 MCV 89 MCH 30 MCHC 34 RDW 13 Plt Count 105 L MPV Not Reportable Absolute Nucleated RBC 0 Neutrophils % 66 Lymphocytes % 28 Monocytes % 3 Eosinophils % 2 Basophils % 1 Nucleated RBC % 0.2 Normal RBC Morphology Normal INR (Anticoag Therapy) APTT 46.6 H 79.1 H Sodium Potassium Chloride Carbon Dioxide Anion Gap BUN Creatinine Est GFR ( Amer) Est GFR (Non-Af Amer) BUN/Creatinine Ratio Glucose Calcium Magnesium 09/02/17 09/02/17 03:34 09:20 WBC RBC Hgb Hct MCV MCH MCHC RDW Plt Count MPV Absolute Nucleated RBC Neutrophils % Lymphocytes % Monocytes % Eosinophils % Basophils % Nucleated RBC % Normal RBC Morphology INR (Anticoag Therapy) 1.01 APTT 66.7 H Sodium 135 Potassium 3.8 Chloride 105 Carbon Dioxide 26 Anion Gap 4 BUN 12 Creatinine 0.91 Est GFR ( Amer) 86.0 Est GFR (Non-Af Amer) 66.9 BUN/Creatinine Ratio 13.2 Glucose 105 H Calcium 8.5 L Magnesium 2.0
[2017-09-02] MEDS: Apixaban* 5 MG TAB PO SCH (20:29)
[2017-09-03] MEDS: Levothyroxine TAB* 88 MCG TAB PO SCH (04:58)
[2017-09-03 06:31] LABS: ABS Basophils 0 10^3/ul (0-0.2); ABS Eosinophils 0.3 10^3/ul (0-0.6); ABS Lymphocytes 1.2 10^3/ul (1.0-4.8); ABS Monocytes 0.4 10^3/ul (0-0.8); ABS Neutrophils 3.2 10^3/ul (1.5-7.7); ABS Nucleated RBC 0 10^3/ul; Eosinophil % 5.7 % (0-6); Hematocrit 36 % (35-47); Hemoglobin 12.3 g/dl (12.0-16.0); Lymphocyte % 22.9 % (25-47); Mean Corpuscular HGB Conc 34 g/dl (31-36); Mean Corpuscular Hemoglobin 30 pg (27-31); Mean Corpuscular Volume 86 fL (80-97); Mean Platelet Volume 9 um3 (7.4-10.4); Nucleated Red Blood Cells % 0; Platelet Count 148 10^3/ul (150-450); Red Blood Count 4.17 10^6/ul (4.0-5.4); Red Cell Distribution Width 13 % (10.5-15); White Blood Count 5.1 10^3/ul (3.5-10.8)
[2017-09-03 06:36] LABS: INR 1.2 (0.77-1.02)
[2017-09-03 06:48] LABS: EGFR Non-African American 79.9 (>60)
[2017-09-03] MEDS: Apixaban* 5 MG TAB PO SCH (08:42)
[2017-09-03 16:32] VITALS: BP 112/70
--- NOTE | 2017-09-03 16:45 | PN ---
Progress Note - Progress Note Date of Service: 09/03/17 - Pulm f/u note Note: Pt seen and examined at bedside. Pt reports feeling better. Had dizziness while ambulating, no SOB. Has not needed O2 Active Medications Generic Name Dose Route Start Last Admin Trade Name Freq PRN Reason Stop Dose Admin Acetaminophen 650 mg 08/30/17 14:38 09/03/17 04:58 Tylenol Tab* PO 650 mg Q4H PRN Administration FEVER/PAIN Apixaban 10 mg 09/02/17 21:00 09/03/17 08:42 Eliquis* PO 10 mg BID DONA Administration Heparin Sodium (Porcine) 1 - 3 ml 08/30/17 18:00 09/03/17 04:52 Heparin Flush Picc/Ml/Cvc(*) FLUSH 1 ml 0600,1800 DONA Administration Protocol Levothyroxine Sodium 88 mcg 08/31/17 06:00 09/03/17 04:58 Synthroid Tab* PO 88 mcg DAILY@0600 DONA Administration Ondansetron HCl 4 mg 08/30/17 14:38 Zofran Inj* IV Q6H PRN NAUSEA Vital Signs Temp Pulse Resp BP Pulse Ox 97.7 F 77 14 112/70 95 09/03/17 15:33 09/03/17 15:33 09/03/17 15:33 09/03/17 15:33 09/03/17 15:33 O/E: Pt in NAD HEENT: PERRLA, No JVD Lungs: Good a/e b/l CVS; S1, S2+, regular Abd: Obese, BS+ Ext: Normal ROM Neuro: No focal defecits Laboratory Results - last 24 hr 09/02/17 09/03/17 09/03/17 16:00 06:20 06:20 WBC 5.1 RBC 4.17 Hgb 12.3 Hct 36 MCV 86 MCH 30 MCHC 34 RDW 13 Plt Count 148 L MPV 9 Neut % (Auto) 63.5 Lymph % (Auto) 22.9 L [place] % (Auto) 7.3 H Eos % (Auto) 5.7 Baso % (Auto) 0.6 Absolute Neuts (auto) 3.2 Absolute Lymphs (auto) 1.2 Absolute Monos (auto) 0.4 Absolute Eos (auto) 0.3 Absolute Basos (auto) 0 Absolute Nucleated RBC 0 Nucleated RBC % 0 INR (Anticoag Therapy) APTT 60.5 H BUN 9 Creatinine 0.78 Est GFR ( Amer) 102.7 Est GFR (Non-Af Amer) 79.9 09/03/17 06:20 WBC RBC Hgb Hct MCV MCH MCHC RDW Plt Count MPV Neut % (Auto) Lymph % (Auto) [place] % (Auto) Eos % (Auto) Baso % (Auto) Absolute Neuts (auto) Absolute Lymphs (auto) Absolute Monos (auto) Absolute Eos (auto) Absolute Basos (auto) Absolute Nucleated RBC Nucleated RBC % INR (Anticoag Therapy) 1.20 H APTT BUN Creatinine Est GFR ( Amer) Est GFR (Non-Af Amer) I/R: 47 y o f with hypothyroidism, provoked DVT/PE, on anticoagulation Pt was hypoxic on admission, has not needed O2 while ambulating today [place] is improved Pt bridged to Eliquis now Had evidence of signficant clot burden on CT chest with rt heart strain Has not needed thrombolytics given hemodynamic stability Has GGO on CT chest, likely infarcts Will need f/u scan to ensure resolution in 6-8 weeks D/w pt and family For d/c today To f/u in pulm clinic in 6-8 weeks, f/u CT w/o contrast prior
--- NOTE | 2017-09-04 15:08 | DS ---
CC: Dr. Fierro; Dr. Rolon; Dr. Sequeira; Dr. Chatman * DISCHARGE SUMMARY: DATE OF ADMISSION: 08/30/17 DATE OF DISCHARGE: 09/03/17 PRIMARY CARE PROVIDER: Dr. Fierro. DIAGNOSES AT DISCHARGE: Include, 1. Acute pulmonary emboli, bilaterally. 2. Acute cor pulmonale due to above. 3. Acute hypoxemic respiratory failure due to the above pulmonary emboli that resolved at discharge. SECONDARY DIAGNOSES: 1. History of hypothyroidism. 2. History of obesity. MEDICATIONS AT DISCHARGE: 1. Synthroid 88 mcg daily. 2. Eliquis 10 mg b.i.d. for 7 days and then 5 mg b.i.d. to continue anticoagulation for a total of 3 months. DISCHARGE INSTRUCTIONS: At discharge, the patient recommended to follow up with primary care provider in approximately 4 to 7 days. The patient is recommended to follow up with Dr. Rolon in approximately 2 to 4 weeks as well as Dr. Sequeira in approximately 2 to 4 weeks. The patient is recommended to have followup CT scan of the chest in approximately 6 weeks in regards to right upper lung change, ground glass opacity noted at admission. LABORATORY DATA AND STUDIES PERFORMED DURING THE HOSPITAL STAY: On 09/03/17, white blood cell count 5.1, hemoglobin 12.3, hematocrit 36, platelets 148. On 09/02/17, sodium was 135, potassium 3.8, chloride 106, carbon dioxide 26, BUN 12 , creatinine 0.91. Venous Doppler study obtained on 08/30/17 of the right lower extremity showed "occlusive deep venous thrombosis of the mid distal to femoral vein, popliteal vein, posterior tibial vein, and peroneal veins." Transthoracic echocardiogram obtained on 08/30/17, impression "left ventricular chamber size is decreased. Mild to moderate concentric LVH with EF of 55% to 60 %. There is septal flattening of the interventricular septum consistent with right ventricular volume or pressure overload. There was an E to A reversal of mitral valve flow pattern, suggestive of diastolic dysfunction. The right ventricle is moderately dilated. The right atrium is mildly dilated. There was mild to moderate tricuspid regurgitation and evidence of moderate pulmonary hypertension. There was mild pulmonary regurgitation." CT angiogram of the chest obtained on 08/30/17, impression: "Large bilateral pulmonary emboli. There was noted ground glass opacification of the right upper lung and right lower lung, there is an indeterminate appearance. This may be an infection or inflammatory process, although pulmonary parenchymal neoplasms are also within the differential. Additionally given the presence of pulmonary emboli, early pulmonary infarct is also within the differential, in the absence of history of malignancy. Recommend attention on short-term interval, followup examination and consideration of correlation with PET CT if there is a high clinical suspicion of neoplasm." CONSULTATIONS DURING THE HOSPITAL STAY: Included Dr. Rolon from Hematology and Dr. Sequeira in pulmonology consultation. HOSPITALIZATION COURSE: Sharee Faith is a 47-year-old female who fractured her distal fibula after she fell on ice on 08/11/17. The patient was seen by Dr. Chatman in consultation, who casted patient's right ankle. On 08/30, the patient was complaining of shortness of breath and chest pain and she came here for evaluation to the ED. Her right leg had been swollen. She was noted to have right lower extremity DVT as well as bilateral PEs with acute hypoxemic respiratory failure and acute cor pulmonale. The patient was admitted to the hospital, treated with heparin drip. Due to her BMI of 43, Dr. Rolon saw patient in consultation from Hematology for further recommendations of anticoagulation. Dr. Rolon recommended either Coumadin or one of the direct oral anticoagulants. Given that it was a provoked event by patient's right lower extremity fracture, 3 months of anticoagulation was appropriate. Dr. Rolon also recommended to avoid Xarelto. We discussed the possibility of anticoagulation with Coumadin versus novel anticoagulants with patient who agreed with being placed on Eliquis and preferred not be on Coumadin. The patient was started on Eliquis the day prior to her discharge. She continued to be hypoxemic up to the day prior to her discharge. By the time of discharge , she ambulated without oxygen need. In regards to patient's right lung abnormality that was noted on CT, I talked with Dr. Rolon, who recommended a CT followup in approximately in 6 weeks, likely to be ordered by her primary care provider. I also asked for the patient to follow up with Dr. Sequeira in regards to that. 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 Furthermore, she was asymptomatic from a respiratory standpoint including no fevers or chills, weight loss or cough to suggest any acute pulmonary infection. It is possible that those opacities represent an infarct as suggested on CT angiogram, but once again followup with Pulmonology was recommended. By the time of discharge, patient was nonweightbearing on her right ankle based on the recommendation by Dr. Chatman, but otherwise ambulating on room air comfortably. She is being discharged to home with recommendations to follow up as above mentioned. PHYSICAL EXAM AT THE TIME OF DISCHARGE: Blood pressure 112/70, heart rate of 77 and regular, respiratory rate 14, oxygen saturation 95% on room air. Temperature 97.7. General: The patient is a very pleasant 47-year-old female with a BMI of 43. The patient is in no acute distress. Alert, awake and oriented x3. HEENT: Head atraumatic, normocephalic. Eyes: Pupils equal, round , and reactive to light and accommodation. Oropharynx clear. Mucosa moist. Neck: Supple. No JVD. No bruits bilaterally. Cardiovascular: Regular rate and rhythm with no murmur. Respiratory: Clear to auscultation bilaterally. Abdomen: Soft, nontender. Bowel sounds present in all 4 quadrants. Extremities: There is right calf edema. Pulses +2 bilaterally. No clubbing or cyanosis. The right ankle is casted. Please note that this is a short summary of the patient's hospitalization. Please refer to further medical records for details. TIME SPENT: Approximately 45 minutes was spent on this discharge. [id number] #: [id number] MTDD
== END 2017-09-03 16:40 | disposition home or self-care (01) | DRG 134 ==
LOC: ED 11:05 → ICU 15:49 → MEDTELE 09-01 20:25
PROVIDERS: ADMIT Internal Medicine; ATTEND Internal Medicine
PROC: 02HV33Z Insertion of Infusion Device into Superior Vena Cava, Percutaneous Approach (ICD-10-PCS; principal; 2017-08-30)
DX: I26.09 Other pulmonary embolism with acute cor pulmonale (principal); J96.01 Acute respiratory failure with hypoxia; E66.01 Morbid (severe) obesity due to excess calories; Z68.41 Body mass index [BMI] 40.0-44.9, adult; I07.1 Rheumatic tricuspid insufficiency; I82.411 Acute embolism and thrombosis of right femoral vein; I82.431 Acute embolism and thrombosis of right popliteal vein; I82.441 Acute embolism and thrombosis of right tibial vein; E03.9 Hypothyroidism, unspecified; I37.1 Nonrheumatic pulmonary valve insufficiency; R91.1 Solitary pulmonary nodule; S82.831D Other fracture of upper and lower end of right fibula, subsequent encounter for closed fracture with routine healing; W00.0XXD Fall on same level due to ice and snow, subsequent encounter; Z79.899 Other long term (current) drug therapy; Z82.49 Family history of ischemic heart disease and other diseases of the circulatory system
CPT/HCPCS: 36415; 71275; 80048; 80053; 82565; 83605; 83735; 83880; 84484; 84520; 84702; 85025; 85379; 85610; 85730; 86140; 87641; 93005; 93306; 94760; 99285; A9270-GY; J1644; Q9967

== ENCOUNTER 2018-05-23 09:00 | Day surgery (SDC) | payer BC ==
[~2018-05-23 09:00] MED LIST: Buffered Lidocaine 0.9% SYRIN* 5 ML/SYR SYRINGE INTRADERM ONE; Dexamethasone IV* 4 MG/ML 1 ML (4 MG) IV SLOW PU ONE; Famotidine IV* 10 MG/ML 2 ML (20 mg) IV ONE
[2018-05-23] MEDS ORDERED: Famotidine IV* 10 MG/ML 2 ML (20 mg) ONE (09:19)
[2018-05-23] MEDS ORDERED: Dexamethasone IV* 4 MG/ML 1 ML (4 MG) ONE (09:19)
[2018-05-23] MEDS ORDERED: Midazolam* 1 MG/ML 2 ML VIAL (2 MG) ONE (10:55)
[2018-05-23] MEDS ORDERED: fentaNYL* 50 MCG/ML 2 ML VIAL (100 MCG VIAL) ONE (10:55)
[2018-05-23] MEDS ORDERED: Lidocaine 2% W/EPI 1:100,000* 20 ML MDV ONE (11:13)
[2018-05-23] MEDS ORDERED: Sugammadex * 200 MG/2 ML VIAL IV PUSH ONE (11:26)
[2018-05-23] MEDS ORDERED: Rocuronium* 10 MG/ML VIAL ONE (11:28)
[2018-05-23] MEDS ORDERED: Bupivacaine 0.5% W/EPI SDV* 30 ML VIAL ONE (11:41)
[2018-05-23] MEDS ORDERED: Ondansetron INJ* 2 MG/ML VIAL ONE (11:58)
[2018-05-23] MEDS ORDERED: Propofol* 10 MG/ML 20 ML BTL ONE (11:58)
[2018-05-23] MEDS ORDERED: Lidocaine 2% PF * 5 ML VIAL ONE (12:05)
[2018-05-23] MEDS ORDERED: Neostigmine Methylsulfate* 2 MG/2 ML SYRINGE ONE (12:13)
[2018-05-23] MEDS ORDERED: Glycopyrrolate IV* 0.2 MG/ML 1 ML VIAL ONE (12:13)
[2018-05-23 16:59] VITALS: BP 141/98
--- NOTE | 2018-05-24 10:05 | OP ---
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 OPERATIVE PROCEDURE: Wide local excision of cancer of the left lateral tongue. COMPLICATIONS: None. DISPOSITION: Good. SPECIMENS: 1. Wide local excision, left lateral tongue lesion. 2. Superior margin stitch anterior. 3. Inferior margin stitch anterior. 4. Posterior margin. 5. Deep margin. All the margins were sent for frozen section and they were all clear of cancer. INDICATIONS: The patient is a 48-year-old who had a lesion on the left lateral tongue. She initially went to oral surgery who did a wide local excision thinking it was benign disease and it turned out to be squamous cell carcinoma. I did look at those slides just before surgery and she had positive margins at the anterior and posterior aspects of the ellipse. She was taken back to the operating room for reexcision with frozen section guidance. DESCRIPTION OF PROCEDURE: The patient was placed on the supine position on the operating table. General anesthesia was induced and she was orotracheally intubated, turned and draped for the surgery. A bite block was placed to open her mouth and a stitch was placed anterior to this lesion, which was in the mid aspect of the tongue to retract the tongue using a ruler. I marked out 1-cm margins and did wide local excision with the needle tip cautery through the mucosa and then deep into the musculature of the tongue. This was sent in formalin. The margins were taken by taking a fine tenotomy scissors and excising the margins as I had previously described. These were sent to Pathology. Hemostasis was ensured and her wound was closed with 3-0 Vicryl horizontal mattress sutures. I went down to Pathology and looked at the frozen sections with the pathologist and they were clear of cancer. The patient tolerated this procedure well, no complications and transferred to the recovery room in stable condition. [id number] #: [id number] MTDD
== END 2018-05-23 17:01 | disposition home or self-care (01) ==
LOC: OR 09:00
PROVIDERS: ATTEND Otolaryngology
DX: C02.2 Malignant neoplasm of ventral surface of tongue (principal); I10 Essential (primary) hypertension; E03.9 Hypothyroidism, unspecified; Z86.711 Personal history of pulmonary embolism
CPT/HCPCS: 81025; 88305; 88331; J1100; J2250; J2405; J2704; J3010